=== PATIENT | male | born 1990 | race Caucasian/White ===

== ENCOUNTER 2018-05-05 12:56 | Emergency (ER) | payer SELFPAY ==
--- NOTE | 2018-05-05 14:03 | ER ---
Nurse's Notes [facility] Name: Micheal Salas Age: 28 yrs Sex: Male : 1990 Arrival Date: 05/05/2018 Time: 13:00 Bed 11 Private MD: Diagnosis: Pain in left upper arm Presentation: 05/05 13:02 Presenting complaint: Patient states: left armpit pain that radiates to the left elbow sv started about a week ago. Denies injury. Transition of care: patient was not received from another setting of care. Onset of symptoms was April 28, 2018. Care prior to arrival: None. 13:02 Method Of Arrival: Ambulatory sv 13:02 Acuity: QUIQUE 4 sv 14:10 Risk Assessment: Do you want to hurt yourself or someone else? Patient reports no aj desire to harm self or others. Initial Sepsis Screen: Does the patient meet any 2 criteria? No. Patient's initial sepsis screen is negative. Does the patient have a suspected source of infection? No. Patient's initial sepsis screen is negative. Historical: - Allergies: 13:04 No Known Allergies; sv - Home Meds: 13:04 None [Active]; sv - PMHx: 13:04 None; sv - PSHx: 13:04 None; sv - Immunization history:: Adult Immunizations up to date. - Social history:: Smoking status: Patient uses tobacco products, smokes one pack cigarettes per day. Patient uses alcohol, but reports only rare drinking. - Ebola Screening: : No symptoms or risks identified at this time. - Family history:: not pertinent. Screenin:01 Abuse screen: Denies threats or abuse. Denies injuries from another. Nutritional aj screening: No deficits noted. Tuberculosis screening: No symptoms or risk factors identified. Fall Risk None identified. Assessment: 14:01 General: Appears in no apparent distress. comfortable, Behavior is calm, cooperative, aj appropriate for age. Pain: Complains of pain in left axilla, left bicep and left antecubital area. Neuro: Level of Consciousness is awake, alert, obeys commands, Oriented to person, place, time, situation, Appropriate for age. Respiratory: Airway is patent Respiratory effort is even, unlabored, Respiratory pattern is regular, symmetrical. Derm: Skin is intact, is healthy with good turgor, Skin is pink, warm \T\ dry. normal. Musculoskeletal: Circulation, motion, and sensation intact. Range of motion: intact in all extremities, Reports pain in left arm and left tricep and left axilla. Vital Signs: 13:04 BP 137 / 65; Pulse 78; Resp 18; Temp 98.5; Pulse Ox 97% ; Weight 76.2 kg; Height 5 ft. sv 11 in. (180.34 cm); Pain 8/10; 13:04 Body Mass Index 23.43 (76.20 kg, 180.34 cm) sv ED Course: 13:00 Patient arrived in ED. rg4 13:03 Triage completed. sv 13:04 Arm band placed on left wrist. Patient placed in waiting room, Patient notified of wait sv time. 13:40 Aquilino Justice MD is Attending Physician. cynthia 13:52 Lina Ramos, RN is Primary Nurse. aj 14:01 Patient has correct armband on for positive identification. aj 14:01 No provider procedures requiring assistance completed. aj 14:02 Patient did not have IV access during this emergency room visit. aj Administered Medications: No medications were administered Outcome: 14:02 Discharge ordered by . cynthia 14:09 Discharged to home ambulatory, with family. aj 14:09 Condition: good 14:09 Discharge instructions given to patient, Instructed on discharge instructions, follow up and referral plans. medication usage, Demonstrated understanding of instructions, follow-up care, medications, Prescriptions given X 2. 14:11 Patient left the ED. aj Signatures: Noelle Echeverria RN RN sv Myers, Amanda, Aquilino Dacosta RN, MD MD cha Garcia, Rubi rg4
--- NOTE | 2018-05-05 14:03 | EDPHYS ---
Physician Documentation [facility] Name: Micheal Salas Age: 28 yrs Sex: Male : 1990 Arrival Date: 05/05/2018 Time: 13:00 Bed 11 Private MD: ED Physician Aquilino Justice HPI: 05/05 13:58 This 28 yrs old Male presents to ER via Ambulatory with complaints of Arm cynthia Pain. 13:58 The patient or guardian complains of decreased range of motion, pain, that is acute. cynthia The complaints affect the left axilla and left tricep. Context: The problem was sustained at an unknown location. Onset: The symptoms/episode began/occurred 5 day(s) ago. Treatment prior to arrival includes: no previous treatment. Modifying factors: The symptoms are alleviated by remaining still, the symptoms are aggravated by movement, lifting weight. Associated signs and symptoms: The patient has no apparent associated signs or symptoms. Severity of symptoms: At their worst the symptoms were mild, in the emergency department the symptoms are unchanged. The patient has not experienced similar symptoms in the past. Historical: - Allergies: 13:04 No Known Allergies; sv - Home Meds: 13:04 None [Active]; sv - PMHx: 13:04 None; sv - PSHx: 13:04 None; sv - Immunization history:: Adult Immunizations up to date. - Social history:: Smoking status: Patient uses tobacco products, smokes one pack cigarettes per day. Patient uses alcohol, but reports only rare drinking. - Ebola Screening: : No symptoms or risks identified at this time. - Family history:: not pertinent. ROS: 13:58 Constitutional: Negative for fever, chills, and weight loss, Eyes: Negative for injury, cynthia pain, redness, and discharge, ENT: Negative for injury, pain, and discharge, Neck: Negative for injury, pain, and swelling, Cardiovascular: Negative for chest pain, palpitations, and edema, Respiratory: Negative for shortness of breath, cough, wheezing, and pleuritic chest pain, Abdomen/GI: Negative for abdominal pain, nausea, vomiting, diarrhea, and constipation, Back: Negative for injury and pain, : Negative for injury, bleeding, discharge, and swelling, Skin: Negative for injury, rash, and discoloration, Neuro: Negative for headache, weakness, numbness, tingling, and seizure, Psych: Negative for depression, anxiety, suicide ideation, homicidal ideation, and hallucinations, Allergy/Immunology: Negative for hives, rash, and allergies, Endocrine: Negative for neck swelling, polydipsia, polyuria, polyphagia, and marked weight changes, Hematologic/Lymphatic: Negative for swollen nodes, abnormal bleeding, and unusual bruising. 13:58 MS/extremity: Positive for pain, tenderness, of the left axilla and left tricep. Exam: 13:58 Constitutional: This is a well developed, well nourished patient who is awake, alert, cynthia and in no acute distress. Head/Face: Normocephalic, atraumatic. Eyes: Pupils equal round and reactive to light, extra-ocular motions intact. Lids and lashes normal. Conjunctiva and sclera are non-icteric and not injected. Cornea within normal limits. Periorbital areas with no swelling, redness, or edema. ENT: Nares patent. No nasal discharge, no septal abnormalities noted. Tympanic membranes are normal and external auditory canals are clear. Oropharynx with no redness, swelling, or masses, exudates, or evidence of obstruction, uvula midline. Mucous membranes moist. Neck: Trachea midline, no thyromegaly or masses palpated, and no cervical lymphadenopathy. Supple, full range of motion without nuchal rigidity, or vertebral point tenderness. No Meningismus. Chest/axilla: Normal chest wall appearance and motion. Nontender with no deformity. No lesions are appreciated. Cardiovascular: Regular rate and rhythm with a normal S1 and S2. No gallops, murmurs, or rubs. Normal PMI, no JVD. No pulse deficits. Respiratory: Lungs have equal breath sounds bilaterally, clear to auscultation and percussion. No rales, rhonchi or wheezes noted. No increased work of breathing, no retractions or nasal flaring. Abdomen/GI: Soft, non-tender, with normal bowel sounds. No distension or tympany. No guarding or rebound. No evidence of tenderness throughout. Back: No spinal tenderness. No costovertebral tenderness. Full range of motion. Male : Normal genitalia with no discharge or lesions. Skin: Warm, dry with normal turgor. Normal color with no rashes, no lesions, and no evidence of cellulitis. Neuro: Awake and alert, GCS 15, oriented to person, place, time, and situation. Cranial nerves II-XII grossly intact. Motor strength 5/5 in all extremities. Sensory grossly intact. Cerebellar exam normal. Normal gait. Psych: Awake, alert, with orientation to person, place and time. Behavior, mood, and affect are within normal limits. 13:58 Musculoskeletal/extremity: Extremities: noted in the left axilla and left tricep: pain, Circulation is intact in all extremities. Sensation intact. Compartment Syndrome exam of affected extremity: is normal. DVT Exam: no swelling, negative Homans' sign noted on exam, no appreciated bluish discoloration, no erythema, no increased warmth, pain, tenderness. Vital Signs: 13:04 BP 137 / 65; Pulse 78; Resp 18; Temp 98.5; Pulse Ox 97% ; Weight 76.2 kg; Height 5 ft. sv 11 in. (180.34 cm); Pain 8/10; 13:04 Body Mass Index 23.43 (76.20 kg, 180.34 cm) sv MDM: 13:40 Patient medically screened. [facility] [place] 14:01 Data reviewed: vital signs, nurses notes. [facility] [place] Administered Medications: No medications were administered Disposition: 05/05/18 14:02 Discharged to Home. Impression: Pain in left upper arm. - Condition is Stable. - Discharge Instructions: Musculoskeletal Pain, Muscle Pain, Adult, Muscle Pain, Pediatric. - Prescriptions for Ibuprofen 600 mg Oral Tablet - take 1 tablet by ORAL route every 8 hours As needed take with food; 21 tablet. Keflex 500 mg Oral Capsule - take 1 capsule by ORAL route every 6 hours for 7 days; 28 capsule. - Medication Reconciliation Form, Thank You Letter, Antibiotic Education, Prescription Opioid Use form. - Follow up: Private Physician; When: 2 - 3 days; Reason: Recheck today's complaints, Continuance of care, Re-evaluation by your physician. - Problem is new. - Symptoms have improved. Signatures: Noelle Echeverria RN RN sv Myers, Amanda, RN RN aj Anderson, Corey, MD MD cha Corrections: (The following items were deleted from the chart) 14:11 14:02 05/05/2018 14:02 Discharged to Home. Impression: Pain in left upper arm. aj Condition is Stable. Forms are Medication Reconciliation Form, Thank You Letter, Antibiotic Education, Prescription Opioid Use. Follow up: Private Physician; When: 2 - 3 days; Reason: Recheck today's complaints, Continuance of care, Re-evaluation by your physician. Problem is new. Symptoms have improved. cynthia
== END 2018-05-05 14:11 | disposition home or self-care (01) ==
LOC: ER 12:56
DX: M79.602 Pain in left arm (principal); F17.210 Nicotine dependence, cigarettes, uncomplicated
CPT/HCPCS: 99282

== ENCOUNTER 2022-05-08 10:19 | Emergency (ER) | payer OTHER, SELFPAY ==
[2022-05-08] MEDS ORDERED: CYCLOBENZAPRINE 10 MG TAB ONE (11:31)
[2022-05-08] MEDS ORDERED: KETOROLAC 30 MG/ML INJ ONE (11:31)
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
[2022-05-08 13:18] VITALS: BP 120/67; TEMP 98.7; O2SAT 100
== END 2022-05-08 13:12 | disposition home or self-care (01) ==
LOC: ER 10:19
DX: S39.012A Strain of muscle, fascia and tendon of lower back, initial encounter (principal); S29.012A Strain of muscle and tendon of back wall of thorax, initial encounter; F17.210 Nicotine dependence, cigarettes, uncomplicated
CPT/HCPCS: 72100